=== PATIENT | female | born 1970 | race American Indian/Alaskan Native ===

== ENCOUNTER 2021-08-11 14:34 | Outpatient (REF) | payer BC, SELFPAY ==
--- NOTE | 2021-08-11 13:40 | PAPFT_PTH ---
PATIENT: Destini Hoffman LOC: [facility]#:[id number] AGE/SX: 51/F ROOM: RE08/11/[address]: Julisa Baumann : 1970 BED: DIS: 08/11/2021 SPEC #: [id number] RECD: 08/12/21 12:55 STATUS: KEITH REIvonne #: [id number] VANESA: 08/11/21 13:[address]: Julisa Baumann DEPT: [facility] Cytology RECD BY: Makayla Lantigua Tissues: 1 - CX/ENDOCX FOR PAP SMEARS Procedures: PAP THIN PREP/[facility] Screening HPV DNA PROBE Comments: [id number]
== END 2021-08-11 14:35 | disposition home or self-care (01) ==
LOC: NCHCN 14:34
PROVIDERS: Visit Provider Registered Nurse
DX: Z12.4 Encounter for screening for malignant neoplasm of cervix (principal); Z11.51 Encounter for screening for human papillomavirus (HPV)
CPT/HCPCS: 88142; 87624

== ENCOUNTER 2021-12-08 16:31 | Outpatient (REF) | payer BC, SELFPAY ==
[2021-12-08 22:02] LABS: Abs Immature Grans 0.02 10^3/uL (0.0-0.06); Absolute Basophil Count 0.04 10^3/uL (0.0-0.2); Absolute Eosinophil Count 0.04 10^3/uL (0.0-0.7); Absolute Lymphocyte Count 1.68 10^3/uL (1.2-3.4); Absolute Monocyte Count 0.55 10^3/uL (0.1-0.8); Absolute Neutrophil Count 3.81 10^3/uL (1.2-6.7); Basophils % 0.7; Eosinophils % 0.7; HCT 42.9 % (36.0-46.0); Immature Grans % 0.3; Lymphocytes % 27.4; MCH 30.8 pg (27.0-33.0); MCHC 32.6 % (32.0-36.0); MCV 94 fL (80-95); MPV 10.6 fL (8.0-11.0); Neutrophils % 61.9; Platelet Count 178 10^3/uL (130-400); RBC 4.55 10^6/uL (3.93-5.22); RDW 11.8 % (11.7-14.6); RDW-SD 40.8 fL; WBC 6.14 10^3/uL (4.4-10.8)
[2021-12-08 22:24] LABS: ALT 23 U/L (14-59); AST 18 U/L (15-37); Albumin 3.4 g/dL (3.4-5.0); Alkaline Phosphatase 70 U/L (46-116); Anion Gap 9.5 mmol/L (3-11); BUN 17 mg/dL (7-18); Bilirubin, Total 0.3 mg/dL (0.2-1.0); CO2 25.5 mmol/L (21.0-32.0); CREATININE 0.8 mg/dL (0.55-1.02); Calcium 9.6 mg/dL (8.5-10.1); Chloride 102 mmol/L (98-107); Glucose 94 mg/dL (74-106); Potassium 3.8 mmol/L (3.5-5.1); Sodium 137 mmol/L (136-145); TSH 2.01 uIU/mL (0.36-3.74); Total Protein 7.4 g/dL (6.4-8.2)
[2021-12-10 10:58] LABS: COVID-19 RT-PCR UVMMC Result Negative (Negative)
== END 2021-12-08 16:32 | disposition home or self-care (01) ==
LOC: NCHCN 16:31
PROVIDERS: Visit Provider Registered Nurse
DX: R06.02 Shortness of breath (principal)
CPT/HCPCS: 80053; U0003; 84443; 85025